=== PATIENT | female | born 1995 | race Caucasian/White ===

== ENCOUNTER 2016-11-16 09:14 | Emergency (ER) | payer OTHER ==
--- NOTE | 2016-11-16 09:35 | Emergency Department Report ---
ED Female HPI - General Chief complaint: Vaginal Bleeding Stated complaint: POSSIBLE MISCARRIAGE Time Seen by Provider: 11/16/16 09:30 Source: patient, EMS (ems notes not available at time of chart dictation), RN notes reviewed Mode of arrival: Stretcher Limitations: No Limitations - History of Present Illness Initial comments: This is a 21-year-old female. She is previously unknown to me. She is 1, para 0. Last menstrual period is October 06. She does not have a local [employer] doctor. The patient presents to the hospital today with EMS for vaginal bleeding. It has since resolved. She has used 1 pad in the past 24 hours. She denies nausea and vomiting. She denies chest pain and shortness of breath. She denies irritative and obstructive urinary symptoms. Reported minimal abdominal cramping, which has since resolved. Her symptoms do not have any exacerbating or relieving factors. She reports that she was recently seen at another hospital, and told "everything was alright." However, she does not have her ultrasound results with her. MD Complaint: vaginal bleeding -: Gradual Location: suprapubic Radiation: non-radiating Quality: cramping Consistency: now resolved Improves with: none Worsens with: none Are you Now?: Yes Associated Symptoms: vaginal bleeding - Related Data Sexually active: Yes Previous Rx's Medication Instructions Recorded Last Taken Type Doxylamine/Pyridoxine HCl 1 each PO QHS PRN #30 tablet. 11/16/16 Unknown Rx [Chris Alvarez 10-10 mg Tablet] Vit W-Ca,Fe,FA(<1 mg) 1 each PO QDAY #30 tablet 11/16/16 Unknown Rx [ Vitamins] Allergies Allergy/AdvReac Type Severity Reaction Status Date / Time No Known Allergies Allergy Unverified 11/16/16 09:29 ED Review of Systems ROS: Stated complaint: POSSIBLE MISCARRIAGE Other details as noted in HPI Constitutional: denies: malaise Eyes: denies: vision change ENT: denies: epistaxis Respiratory: denies: cough Cardiovascular: denies: chest pain Gastrointestinal: denies: nausea, vomiting Genitourinary: as per HPI, abnormal menses Musculoskeletal: denies: back pain Skin: as per HPI Neurological: as per HPI Psychiatric: as per HPI ED Past Medical Hx - Past Medical History Previous Medical History?: No - Surgical History Past Surgical History?: No - Social History Smoking Status: Never Smoker Substance Use Type: None - Medications Home Medications: Home Medications Medication Instructions Recorded Confirmed Last Taken Type Doxylamine/Pyridoxine HCl 1 each PO QHS PRN #30 tablet. 11/16/16 Unknown Rx [Dicgordon Alvarez 10-10 mg Tablet] Vit W-Ca,Fe,FA(<1 mg) 1 each PO QDAY #30 tablet 11/16/16 Unknown Rx [ Vitamins] ED Physical Exam - General Limitations: No Limitations General appearance: alert, in no apparent distress - Head Head exam: Present: atraumatic, normocephalic - Eye Eye exam: Present: normal appearance, EOMI. Absent: nystagmus - ENT ENT exam: Present: normal exam, normal orophraynx, mucous membranes moist, normal external ear exam - Neck Neck exam: Present: normal inspection, full ROM. Absent: tenderness, meningismus - Respiratory Respiratory exam: Present: normal lung sounds bilaterally. Absent: respiratory distress, wheezes, rales, rhonchi, stridor, chest wall tenderness, accessory muscle use, decreased breath sounds, prolonged expiratory - Cardiovascular Cardiovascular Exam: Present: regular rate, normal rhythm, normal heart sounds. Absent: bradycardia, tachycardia, irregular rhythm, systolic murmur, diastolic murmur, rubs, gallop - GI/Abdominal GI/Abdominal exam: Present: soft, normal bowel sounds. Absent: distended, tenderness, guarding, rebound, rigid, pulsatile mass - External exam: Present: normal external exam Speculum exam: Present: normal speculum exam, cervical discharge. Absent: vaginal bleeding, foreign body Bi-manual exam: Present: normal bi-manual exam, other (escorted by MAXIMUS Kidd ). Absent: cervical motion tendernes, adnexal tenderness, adnexal mass, uterine enlargement, uterine tenderness - Extremities Exam Extremities exam: Present: normal inspection - Back Exam Back exam: Present: normal inspection, full ROM. Absent: tenderness, CVA tenderness (R), CVA tenderness (L), muscle spasm, paraspinal tenderness, vertebral tenderness - Neurological Exam Neurological exam: Present: alert, oriented X3, normal gait, other (Extraocular movements intact. Tongue midline. No facial droop. Facial sensation intact to light touch in the V1, V2, V3 distribution bilaterally. 5 and 5 strength in 4 extremities.. Sensation is intact to light touch in 4 extremities.). Absent : motor sensory deficit - Psychiatric Psychiatric exam: Present: normal affect, normal mood - Skin Skin exam: Present: warm, dry, intact, normal color. Absent: rash ED Course Vital Signs 11/16/16 11/16/16 11/16/16 09:16 09:24 10:17 Temperature 98.3 F Pulse Rate 74 Respiratory 16 Rate Blood Pressure 99/63 99/63 O2 Sat by Pulse 100 100 100 Oximetry 11/16/16 11/16/16 11/16/16 11:00 12:00 13:00 Temperature Pulse Rate Respiratory Rate Blood Pressure 104/61 107/64 102/67 O2 Sat by Pulse 100 100 100 Oximetry - Reevaluation(s) Reevaluation #1: 11/16/16 11:31 Differential diagnosis: Miscarriage, ectopic , subchorionic hemorrhage , UTI Assessment and plan: 21-year-old female who is for the first time with resolved vaginal bleeding. She is afebrile, with reassuring vital signs, is tolerating liquid feeds, and talking and playing on a cellular phone. Her abdomen is soft and benign, with no rebound, guarding or peritoneal signs. Pelvic ultrasound is pending. Rh+. Urinalysis is pending. Reevaluation #2: 11/16/16 12:51 gynecologic examination is benign. Urinalysis is not consistent with UTI. Patient resting comfortably. Ultrasound confirms IUP, gestational sac, heartbeat. No evidence of subchorionic hemorrhage. Patient consistent with threatened miscarriage, and she she will follow up with an outpatient buckle stringer. She is tolerating liquid feeds. ED Medical Decision Making - Lab Data Result diagrams: 11/16/16 09:34 Vital Signs 11/16/16 11/16/16 11/16/16 09:16 09:24 10:17 Temperature 98.3 F Pulse Rate 74 Respiratory 16 Rate Blood Pressure 99/63 99/63 O2 Sat by Pulse 100 100 100 Oximetry 11/16/16 11:00 Temperature Pulse Rate Respiratory Rate Blood Pressure 104/61 O2 Sat by Pulse 100 Oximetry Lab Results 11/16/16 11/16/16 11/16/16 Range/Units 09:34 09:34 09:34 WBC 6.4 (4.5-11.0) K/mm3 RBC 4.34 (3.65-5.03) M/mm3 Hgb 12.2 (10.1-14.3) gm/dl Hct 38.2 (30.3-42.9) % MCV 88 (79-97) fl MCH 28 (28-32) pg MCHC 32 (30-34) % RDW 12.8 L (13.2-15.2) % Plt Count 331 (140-440) K/mm3 Lymph % (Auto) 28.2 (13.4-35.0) % [place] % (Auto) 6.8 (0.0-7.3) % Eos % (Auto) 0.8 (0.0-4.3) % Baso % (Auto) 0.8 (0.0-1.8) % Lymph # 1.8 (1.2-5.4) K/mm3 [place] # 0.4 (0.0-0.8) K/mm3 Eos # 0.0 (0.0-0.4) K/mm3 Baso # 0.0 (0.0-0.1) K/mm3 Seg Neutrophils % 63.4 (40.0-70.0) % Seg Neutrophils # 4.1 (1.8-7.7) K/mm3 HCG, Quant 84596 H (0-4) mIU/mL Blood Type B POSITIVE Antibody Screen TNR REJI Antibody Screen Negative - Radiology Data Radiology results: pending, report reviewed, image reviewed Transvaginal obstetrics ultrasound demonstrates an intrauterine . Heartbeat is 107 bpm. There is no acute abnormality is noted. Critical care attestation.: If time is entered above; I have spent that time in minutes in the direct care of this critically ill patient, excluding procedure time. ED Disposition Clinical Impression: Threatened miscarriage Disposition: DC-01 TO HOME OR SELFCARE Is pt being admited?: No Does the pt Need Aspirin: No Condition: Stable Instructions: Threatened Miscarriage (ED) Additional Instructions: Rest and avoid heavy lifting. Avoid strenuous physical activity. Follow up with a buckle stringer within the next week. Do not engage in sexual activities until cleared by a buckle stringer. Return to the ER right away with new pain, worsened pain, migration of pain, intractable nausea or vomiting, fevers, confusion, dizziness, lightheadedness, bleeding more than 2 pads soaked through and through per hour. Prescriptions: Doxylamine/Pyridoxine HCl [Chris Alvarez 10-10 mg Tablet] 1 each PO QHS PRN #30 tablet. PRN Reason: Nausea Vit W-Ca,Fe,FA(<1 mg) [ Vitamins] 1 each PO QDAY #30 tablet Referrals: PRIMARY CAREMD [Primary Care Provider] - 3-5 Days FARNAZ ARTEAGA MD [Staff Physician] - 3-5 Days Forms: Work/School Release Form(ED)
[2016-11-16 10:04] LABS: Basophils % (Auto) 0.8 % (0.0-1.8); Eosinophils % (Auto) 0.8 % (0.0-4.3); Hematocrit 38.2 % (30.3-42.9); Hemoglobin 12.2 gm/dl (10.1-14.3); Mean Corpuscular HGB Conc 32 % (30-34); Mean Corpuscular Hemoglobin 28 pg (28-32); Mean Corpuscular Volume 88 fl (79-97); Platelet Count 331 K/mm3 (140-440); Red Blood Count 4.34 M/mm3 (3.65-5.03); Red Cell Distribution Width 12.8 % (13.2-15.2); White Blood Count 6.4 K/mm3 (4.5-11.0)
[2016-11-16 11:54] LABS: Bilirubin,Urine NEG (Negative); Blood,Urine NEG (Negative); Ketones,Urine 20 mg/dL (Negative); Leukocyte Esterase,Urine TR (Negative); Mucus,Urine 2+ /HPF; Nitrite,Urine NEG (Negative); Protein,Urine <15 mg/dL mg/dL (Negative); Urobilinogen,Urine < 2.0 mg/dL (<2.0)
--- NOTE | 2016-11-16 12:11 | Ultrasound Report ---
ULTRASOUND OB LESS THAN 14 WEEKS FETUS ULTRASOUND OB TRANSVAGINAL HISTORY: Vaginal bleeding during . TECHNIQUE: Transabdominal and transvaginal ultrasound with color doppler interrogation. No comparison. The uterus is anteverted and measures 8 x 5 x 6 cm. A small intrauterine gestational sac containing a small pole and yolk sac is identified. Heart rate measures 107 beats per minute. [place]-rump length correlates with a 6 week, 1 day . Estimated due date 07/11/17. The right ovary is normal size, contour and echotexture. There 2 large left adnexal cysts measuring 3.5 cm and 5.0 cm. No pelvic fluid collection. IMPRESSION: Viable, single intrauterine as described. No acute abnormality is appreciated. Left ovarian cysts.
--- NOTE | 2016-11-16 12:11 | Ultrasound Report ---
ULTRASOUND OB LESS THAN 14 WEEKS FETUS ULTRASOUND OB TRANSVAGINAL HISTORY: Vaginal bleeding during . TECHNIQUE: Transabdominal and transvaginal ultrasound with color doppler interrogation. No comparison. The uterus is anteverted and measures 8 x 5 x 6 cm. A small intrauterine gestational sac containing a small pole and yolk sac is identified. Heart rate measures 107 beats per minute. [place]-rump length correlates with a 6 week, 1 day . Estimated due date 07/11/17. The right ovary is normal size, contour and echotexture. There 2 large left adnexal cysts measuring 3.5 cm and 5.0 cm. No pelvic fluid collection. IMPRESSION: Viable, single intrauterine as described. No acute abnormality is appreciated. Left ovarian cysts.
[2016-11-16 13:44] VITALS: BP 102/67
== END 2016-11-16 13:44 | disposition home or self-care (01) ==
LOC: ED 09:14
DX: O20.0 Threatened abortion (principal); Z3A.00 Weeks of gestation of pregnancy not specified
CPT/HCPCS: 36415; 76801; 76817; 81001; 84702; 85025; 86850; 86900; 86901; 99285

== ENCOUNTER 2017-04-08 15:32 | Outpatient (CLI) | payer MEDICAID ==
[2017-04-08] MEDS ORDERED: LACTATED RINGERS 1,000 ML IV ONE (16:00)
[2017-04-08 16:21] LABS: Urine Drugs of Abuse Note Disclamer
[2017-04-08 17:35] LABS: Bilirubin,Urine NEG (Negative); Blood,Urine NEG (Negative); Ketones,Urine NEG (Negative); Leukocyte Esterase,Urine SM (Negative); Nitrite,Urine NEG (Negative); Protein,Urine <15 mg/dL mg/dL (Negative); Urobilinogen,Urine < 2.0 mg/dL (<2.0)
[2017-04-08] MEDS ORDERED: BRETHINE SUB-Q ONE (18:00)
[2017-04-08 18:06] VITALS: BP 131/74
[2017-04-08 18:19] LABS: Mucus,Urine 2+ /HPF
== END 2017-04-08 19:15 | disposition home or self-care (01) ==
LOC: TRG 15:32
PROVIDERS: ATTEND Obstetrics & Gynecology
DX: O47.02 False labor before 37 completed weeks of gestation, second trimester (principal); Z3A.26 26 weeks gestation of pregnancy
CPT/HCPCS: 36415; 59025; 80307; 81001; 82731; 96360; 96372; J3105

== ENCOUNTER 2017-04-19 12:29 | Outpatient (CLI) | payer MEDICAID ==
[2017-04-19 13:09] VITALS: BP 109/59
[2017-04-19] MEDS ORDERED: LACTATED RINGERS 500 ML IV ONE (13:22)
[2017-04-19] MEDS ORDERED: LACTATED RINGERS 1,000 ML ONE (13:25)
[2017-04-19] MEDS ORDERED: BRETHINE SUB-Q ONE (14:49)
== END 2017-04-19 15:30 | disposition home or self-care (01) ==
LOC: TRG 12:29
PROVIDERS: ATTEND Obstetrics & Gynecology
DX: O47.02 False labor before 37 completed weeks of gestation, second trimester (principal); Z3A.27 27 weeks gestation of pregnancy
CPT/HCPCS: 59025; 96360; J3105; J7120